=== PATIENT | male | born 1990 | race Caucasian/White ===

== ENCOUNTER 2022-10-30 12:58 | Emergency (ER) | payer OTHER, SELFPAY ==
[2022-10-30 13:04] VITALS: BP 142/85; PULSE 109; RESP 18; TEMP 37.6; O2SAT 95; BMI 29.8
--- NOTE | 2022-10-30 13:05 | CRLHL7_ITS ---
For Patients: As a result of the Century Cures Act, medical imaging exams and procedure reports are released immediately into your electronic medical record. You may view this report before your referring provider. If you have questions, please contact your health care provider. INDICATION: Trauma; elevated D-dimer; pain and swelling left lower extremity. Comparison: None. TECHNIQUE: Duplex ultrasound evaluation venous system left lower extremity; color Doppler duplex assessment. FINDINGS: No evidence of venous thrombosis involving the deep venous system. Deep venous system is compressible with augmentation of flow post compression. Contralateral right common femoral vein is unremarkable. A 5.6 x 1 x 4.4 cm complex fluid collection left medial lower calf at the site of injury; rule out hematoma. IMPRESSION: 1. No DVT left lower extremity. 2. A 5.6 x 1 x 4.4 cm complex fluid collection, avascular, at the site of injury in the left medial lower calf ; Rule out hematoma. Dictated by Zach Hancock MD @ 10/30/2022 3:17:08 PM (Electronically Signed)
--- NOTE | 2022-10-30 13:07 | CRLHL7_ITS ---
For Patients: As a result of the Cures Act, medical imaging exams and procedure reports are released immediately into your electronic medical record. You may view this report before your referring provider. If you have questions, please contact your health care provider. INDICATION: Tachycardia; left lower extremity injury; elevated D-dimer. TECHNIQUE: CT chest with intravenous contrast ; Coronal and sagittal reformats. FINDINGS: No evidence of acute or chronic pulmonary thromboembolism. No evidence of aortic aneurysm or dissection. Normal size cardiac silhouette without any pericardial effusion. No evidence of pleural effusion or chest wall pathology. No abnormal intra pulmonary nodular densities are identified. Limited CT through the upper abdomen is unremarkable. IMPRESSION: Negative CT chest with intravenous contrast. Please note that all CT scans at this facility use dose modulation, iterative reconstruction, and/or weight-based dosing when appropriate to reduce radiation dose to as low as reasonably achievable. Dictated by Zach Hancock MD @ 10/30/2022 3:54:49 PM (Electronically Signed)
--- NOTE | 2022-10-30 13:08 | ED.LOWEXIN ---
HPI - Extremity Injury (Lower) General Time Seen by Provider: 13:08 Date Seen: 10/30/22 Chief Complaint: Extremity Pain/Injury, Lower Stated Complaint: Possible blood clot Time Seen by Provider: 10/30/22 13:05 Source: patient and RN notes reviewed Mode of arrival: ambulatory Limitations: no limitations History of Present Illness HPI Narrative: This 31-year-old male was referred from urgent care to us in the ER for concern of possible thromboembolic disease. He presented to urgent care with increasing left lower extremity pain. About a week and half ago, he was kicked in the left lower leg by a cow. They were able to show me a picture in there was significant bruising. He states it really was not even that painful until yesterday when he got a mild kick in the same area. It started to become red and swollen, more painful. Last night he had chills but his thermometer did not read a fever. He reported that he was slightly short of breath in urgent care and was noted to have a history of atrial fibrillation. Had an EKG there are showing sinus tachycardia in the 120s, I am unable to see that EKG as of this time. He had a negative x-ray done of his left lower extremity, also had an elevated white blood count and D-dimer there. Kirsten the nurse practitioner did call us and I a absolutely supported her request for further workup here in the ER. We both agreed that he needed further evaluation for thromboembolic disease, otherwise based on my conversation with her, she was certainly concerned about cellulitis as well. O2 sats were 96% there. His did drive him here. He has no known history of MRSA, believes his tetanus to be up-to-date. Last took ibuprofen last night. Related Data Home Medications Medication Instructions Recorded Confirmed ibuprofen 200 mg capsule 200 mg PO Q6H PRN 11/01/22 11/01/22 Previous Rx's Medication Instructions Recorded cephalexin 500 mg tablet 500 mg PO TID #30 tabs 10/30/22 Allergies Allergy/AdvReac Type Severity Reaction Status Date / Time No Known Drug Allergies Allergy Unverified 11/01/22 09:29 Review of Systems Status of ROS: Reports: 6 or more systems reviewed and unremarkable except as noted in History and below PFSH PFSH Medical History Laceration of index finger ?S61.218A - Laceration without foreign body of other finger without damage to nail, initial encounter (ICD-10) Laceration of finger of right hand ?S61.219A - Laceration without foreign body of unspecified finger without damage to nail, initial encounter (ICD-10) History of cardioversion ?Z92.89 - Personal history of other medical treatment (ICD-10) Conjunctivitis (08/15/13) ?H10.9 - Unspecified conjunctivitis (ICD-10) Leg swelling ?M79.89 - Other specified soft tissue disorders (ICD-10) Surgical History History of hernia repair ?Z98.890 - Other specified postprocedural states (ICD-10) ?Z87.19 - Personal history of other diseases of the digestive system (ICD-10) History of foot surgery ?Z98.890 - Other specified postprocedural states (ICD-10) Family History (Updated 10/31/22 @ 13:05 by Juan Mohan) Mother Cardiac arrhythmia Brother Cardiac arrhythmia Social History Smoking Status: Never smoker How often do you have a drink containing alcohol: 2-4 times a month AUDIT-C Alcohol total score: 2 Non-prescribed substance use: denies use Exam Const: Vital Signs, click to edit/add: Vital Signs - 24 hr 10/30/22 13:04 10/30/22 13:54 10/30/22 14:00 Temperature 99.7 F H Pulse Rate 109 H 110 H Pulse Rate [Pulse Oximeter] 109 H Respiratory Rate 18 Blood Pressure Blood Pressure [Ri ght Upper Arm] 142/85 H Pulse Oximetry 95 97 97 Oxygen Delivery Me thod Room Air 10/30/22 14:01 Temperature Pulse Rate 109 H Pulse Rate [Pulse Oximeter] Respiratory Rate 16 Blood Pressure 123/88 Blood Pressure [Ri ght Upper Arm] Pulse Oximetry 97 Oxygen Delivery Me thod Room Air Pleasant 31-year-old gentleman whom appears to have some facial flushing but is otherwise alert and interactive. Able to speak in complete sentences. Conjugate gaze, sclera clear, pupils seem equal around. Symmetrical facial function. Lungs are clear with good air entry, no wheezing or crackles, no tachypnea. Heart rate is mildly fast, no murmur, normal S1 and S2. Abdomen is soft, nontender, no masses or organomegaly noted. His left lower extremity shows erythematous swollen area just above the ankle area medially. It seems tender there but is not fluctuant. There is more skin induration in the central erythematous area that is probably about 8-10 cm in diameter an irregular fashion over this medial lower extremity. From that there is faint pinkish change that is extending outward more so proximally up the medial calf. The calf itself is nontender when I palpate. He has got good dorsalis pedis and posterior tibialis pulses on this leg, normal cap refill of his toes and normal sensation. Documenting provider has reviewed patient's vital signs: yes Course Course ED Course: Infection, thromboembolic disease on need to be considered. Have discussed compartment syndrome with him although there is no vascular or neurologic symptoms of that at this point, did review with patient that we should still considered a possibility for development. Will try some IV Toradol, initiate IV fluids. CT of his chest PE protocol as well as a venous ultrasound of his left lower extremity have been ordered. We will get other labs outside of the CBC and D-dimer that he had done in urgent care. [place] [address], hemoglobin 15.7, platelet count 117766, absolute neutrophil count elevated at 12,700 thousand seven hundred. He is D-dimer was 667 with 105 100 being normal. This was all done in urgent care. The x-ray report of this extremity from Urgent Care showed marked superficial soft tissue swelling of the medial lower extremity without evidence of displaced fracture. Reevaluation(s) Time of Reevaluation #1: 14:39 Reevaluation #1: Reviewed with patient that this is looking like cellulitis. Preliminary report per the salesperson recreational vehicles is no blood clot. Did review that there looks to be a fluid collection underlying area that would be consistent with a hematoma. She did not believe this was not abscess as there was no increased vascularity around it. We still will need to rule out pulmonary emboli with chest CT PE protocol. In the meantime, have ordered 2 g IV Ancef. Discussed the need to try to rest and elevate this leg to help with resolution of infection. Time of Reevaluation #2: 16:10 Reevaluation #2: Reviewed final imaging reports. No pulmonary emboli, probable hematoma in the leg. We discussed elevating and resting this leg, there is likely overlying cellulitis but given there is underlying hematoma, am going to favor icing the hematoma area at this time. His asked about compression, I think light Ted wrap is fine but if he is elevating and resting, likely fine to just be open. We did specifically discuss compartment syndrome earlier, did review signs and symptoms of hematoma and should it become infected. He certainly needs to watch for worsening at this point. Do feel he is stable to try outpatient initiation of antibiotics but will get him scheduled to follow up with Orthopedics. Did review his last tetanus listed was 05/14/2010, does agree to have this updated. Consultations Consultation #1: Reviewed the case with Justin on-call for Orthopedics. She will help get him scheduled for follow-up, will have office contact him tomorrow. I did review with her that I was taking care of initiating antibiotic coverage for him. Time: 16:12 Vital Signs Vital signs: Initial Vital Signs Temperature 99.7 F H 10/30/22 13:04 Temperature Source Temporal Artery Scan 10/30/22 13:04 Pulse Rate 109 H 10/30/22 13:04 Respiratory Rate 18 10/30/22 13:04 Blood Pressure 142/85 H 10/30/22 13:04 Blood Pressure Mean 104 10/30/22 13:04 Blood Pressure Position Semi-Fowlers 10/30/22 13:04 Pulse Oximetry 95 10/30/22 13:04 Oxygen Delivery Method Room Air 10/30/22 13:04 Vital Signs Temperature 99.7 F H 10/30/22 13:04 Pulse Rate 109 H 10/30/22 13:04 Respiratory Rate 18 10/30/22 13:04 Blood Pressure 142/85 H 10/30/22 13:04 Pulse Oximetry 95 10/30/22 13:04 Oxygen Delivery Method Room Air 10/30/22 13:04 Temperature 99.7 F H 10/30/22 13:04 Pulse Rate 109 H 10/30/22 14:01 Respiratory Rate 16 10/30/22 14:01 Blood Pressure 123/88 10/30/22 14:01 Pulse Oximetry 97 10/30/22 14:01 Oxygen Delivery Method Room Air 10/30/22 14:01 MDM - Extremity Injury (Lower) Lab Data Attestation: I reviewed the patient's lab results. Labs: Lab Results 10/30/22 10/30/22 Range/Units 12:33 13:16 Sodium 136 (135-149) mmol/L Potassium 3.7 (3.6-5.1) mmol/L Chloride 101 (96-114) mmol/L Carbon Dioxide 27 (20-32) mmol/L Anion Gap 8 (7-15) mEq/L BUN 19 (5-24) mg/dL Creatinine 0.9 (0.5-1.5) mg/dL Estimated Creat Clear 129.33 Estimated GFR 116 ml/min Glucose 101 (60-115) mg/dL Lactate 0.9 (0.5-1.9) mmol/L Calcium 9.3 (8.4-10.6) mg/dL Total Creatine Kinase 163 (54-186) U/L C-Reactive Protein 5.3 H (0.5-1.0) mg/dL Procalcitonin 0.44 (<0.50) ng/mL Lab Acknowledgement Test Added Imaging Data Venous US: Attestation: I have reviewed the pertinent imaging results. Radiologist's impression: Patient: MIS KELLEY Facility:?[facility] Patient ID:?[id number] Site Patient ID:?[id number]. Site :?1990 Study:?US Extremity Left LEV LT-10/30/2022 2:18:02 PM Ordering Physician:Liliana Georges Final Report: INDICATION: Trauma; elevated D-dimer; pain and swelling left lower extremity. Comparison: None. TECHNIQUE: Duplex ultrasound evaluation venous system left lower extremity; color Doppler duplex assessment. FINDINGS: No evidence of venous thrombosis involving the deep venous system. Deep venous system is compressible with augmentation of flow post compression. Contralateral right common femoral vein is unremarkable. A 5.6 x 1 x 4.4 cm complex fluid collection left medial lower calf at the site of injury; rule out hematoma. IMPRESSION: 1. No DVT left lower extremity. 2. A 5.6 x 1 x 4.4 cm complex fluid collection, avascular, at the site of injury in the left medial lower calf ; Rule out hematoma. Dictated by Zach Hancock MD @ 10/30/2022 3:17:08 PM (Electronic Signature) CT scan - chest: Attestation: I have reviewed the pertinent imaging results. Radiologist's impression: Patient: MIS KELLEY Facility:?[facility] Patient ID:?[id number] Site Patient ID:?[id number]. Site :?1990 Study:?CT Chest Angio PE W/ISOVUE 370 95CC-10/30/2022 2:56:19 PM Ordering Physician:Liliana Georges Final Report: INDICATION: Tachycardia; left lower extremity injury; elevated D-dimer. TECHNIQUE: CT chest with intravenous contrast ; Coronal and sagittal reformats. FINDINGS: No evidence of acute or chronic pulmonary thromboembolism. No evidence of aortic aneurysm or dissection. Normal size cardiac silhouette without any pericardial effusion. No evidence of pleural effusion or chest wall pathology. No abnormal intra pulmonary nodular densities are identified. Limited CT through the upper abdomen is unremarkable. IMPRESSION: Negative CT chest with intravenous contrast. Please note that all CT scans at this facility use dose modulation, iterative reconstruction, and/or weight-based dosing when appropriate to reduce radiation dose to as low as reasonably achievable. Dictated by Zach Hancock MD @ 10/30/2022 3:54:49 PM (Electronic Signature) ECG Data Attestation: I personally reviewed and interpreted this ECG as follows: (Sinus tachycardia, 109 beats per minute. No acute ischemic change noted, QT corrected 414 milliseconds.) ECG interpretation date: 10/30/22 ECG interpretation time: 13:21 Prior ECG tracings: not available for review (EKG is not scanned into the system from urgent care at this time.) Critical Care Time Critical Care Time Critical Care Time: No Discharge Plan Discharge Clinical Impression: Cellulitis of left lower leg, Hematoma Patient Disposition: Home, Self-Care Condition: Stable Instructions: Cellulitis (ED), Hematoma (ED) Additional Instructions: Next dose of antibiotics do tonight later before bed. Take antibiotics as prescribed. Do recommend elevating and icing this left lower extremity due to the underlying hematoma. Can use a light Ted wrap for compression. I highly encourage you to try to stay off this leg and rest it at least for the next few days, further recommendations can be obtained from Orthopedics when he follow-up. If you do not hear from the Orthopedic Clinic tomorrow, please call them to get scheduled for follow-up. Number to the Ortho Clinic is [phone]. It is fine to use Tylenol and ibuprofen as needed for discomfort, follow bottle directions for dosing. If your pain is significantly increasing, area of redness is rapidly expanding, have worsening fever pattern, do recommend re-evaluation in the interim. Prescriptions: New cephalexin 500 mg tablet 500 mg PO TID Qty: 30 0RF No Action ibuprofen 200 mg capsule 200 mg PO Q6H PRN Follow Up/Referrals: Epifanio Crenshaw MD [Referring] - Stand Alone Forms: evocatal Info Instructions
[2022-10-30 13:41] LABS: Lactate* 0.9 mmol/L (0.5-1.9)
[2022-10-30] MEDS: KETOROLAC 15 MG/ML inj IVP (13:42)
[2022-10-30 13:54] VITALS: PULSE 109; O2SAT 97
[2022-10-30 13:57] LABS: Chloride* 101 mmol/L (96-114); Potassium* 3.7 mmol/L (3.6-5.1); Sodium* 136 mmol/L (135-149)
[2022-10-30 14:00] VITALS: PULSE 110; O2SAT 97
[2022-10-30 14:00] LABS: Anion Gap 8 mEq/L (7-15); Blood Urea Nitrogen* 19 mg/dL (5-24); Carbon Dioxide* 27 mmol/L (20-32); Creatine Kinase* 163 U/L (54-186); Creatinine* 0.9 mg/dL (0.5-1.5); Est. Creatinine Clearance* 129.33; Estimated Glomerular Filt Rate 116 ml/min
[2022-10-30 14:01] VITALS: BP 123/88; PULSE 109; RESP 16; O2SAT 97
[2022-10-30 14:01] LABS: Calcium* 9.3 mg/dL (8.4-10.6); Glucose* 101 mg/dL (60-115)
[2022-10-30 14:03] LABS: C Reactive Protein* 5.3 mg/dL (0.5-1.0)
[2022-10-30 14:17] LABS: Procalcitonin* 0.44 ng/mL (<0.50)
[2022-10-30] MEDS: CEFAZOLIN 2 GM in 0.9 % SODIUM CHLORIDE Mini-bag 100 ML IVPB (15:16)
[2022-10-30] MEDS: cephALEXin 500 MG CAPSULE PO (16:20)
[2022-10-30] MEDS: TETANUS/DIPHTH/PERTUSSIS 0.5 ML SYRINGE IM (16:50)
== END 2022-10-30 16:57 | disposition home or self-care (01) ==
PROVIDERS: Emergency Provider Family Medicine
DX: L03.116 Cellulitis of left lower limb (principal); S80.12XA Contusion of left lower leg, initial encounter
CPT/HCPCS: 36415; 71275; 80048; 82550; 83605; 84145; 86140; 87040; 90715; 93005; 93971; 94761; 96365; 96372; 96375; 99284; 99285; A9270; J0690; J1885; Q9967

== ENCOUNTER 2022-11-01 10:50 | Outpatient (CLI) | payer OTHER, SELFPAY | END 2022-11-01 10:51 | disposition home or self-care (01) | PROVIDERS: Visit Provider Physician Assistant Surgical | DX: L03.116 Cellulitis of left lower limb (principal); R79.89 Other specified abnormal findings of blood chemistry; L02.416 Cutaneous abscess of left lower limb; T14.8XXA Other injury of unspecified body region, initial encounter | CPT/HCPCS: 87070; 87075; 87186; 87205; 89051 ==

== ENCOUNTER 2022-11-04 10:27 | Day surgery (SDC) | payer OTHER, SELFPAY ==
[2022-11-04] VITALS (11 sets, daily range): BP systolic 122–137; BP diastolic 87–101; PULSE 81–113; RESP 16–23; TEMP 36.4–37.2; O2SAT 93–100; BMI 29.7
[2022-11-04] MEDS: LACTATED RINGERS 1000 ML 1,000 ML 100 ML IV (10:35)
[2022-11-04] MEDS: SODIUM CHLORIDE 0.9 % (FLUSH) 10 ML SYRINGE IVF (11:04)
--- NOTE | 2022-11-04 11:24 | W.ANESCHARGE ---
Anesthesia Charges Start Date/Time Anesthesia Start Date: 11/04/22 Anesthesia Start Time: 11:58 Stop Date/Time Anesthesia Stop Date: 11/04/22 Anesthesia Stop Time: 13:10
[2022-11-04] MEDS: CEFAZOLIN 2 GM in 0.9 % SODIUM CHLORIDE Mini-bag 100 ML IVPB (12:24)
[2022-11-04] MEDS: LIDOCAINE 1 % PF 30 ML INJECTION (12:35)
[2022-11-04] MEDS: BUPIVACAINE 0.5% 30 ML INJECTION (12:35)
--- NOTE | 2022-11-04 12:38 | SUR.OPER ---
DEBRIEF COMPLETED WITH SURGEON BEFORE HE LEFT THE OR. PROCEDURE, EBL, AND SPECIMENS CONFIRMED.
[2022-11-04] MEDS: BACITRACIN OINTMENT BULK TUBE 1 APPLIC TOPICAL (12:55)
[2022-11-04] MEDS: MEPERIDINE 25 MG/ML INJ 12.5 MG IVP (13:23)
--- NOTE | 2022-11-04 13:26 | W.ANESCHARGE ---
Anesthesia Charges Start Date/Time Anesthesia Start Date: 11/04/22 Anesthesia Start Time: 11:58 Stop Date/Time Anesthesia Stop Date: 11/04/22 Anesthesia Stop Time: 13:10
--- NOTE | 2022-11-04 13:29 | W.PM.H&PU ---
History & Physical Update History & Physical Update H&P Reviewed and patient assessed: No changes noted
--- NOTE | 2022-11-04 13:29 | PM.ORPRC ---
Procedure Note Date of procedure: 11/04/22 Procedure: PREOPERATIVE DIAGNOSIS: 1. Left anterior medial mid leg deep abscess POSTOPERATIVE DIAGNOSIS: 1. Left anterior medial mid leg deep abscess PROCEDURE: 1. Left anterior medial mid leg incision and drainage deep abscess/hematoma (skin incision 5 cm; deep tracking measured approximately 6 x 7 cm in the proximal-distal, medial-lateral directions, respectively). 2. Left leg excisional debridement subcutaneous tissue SURGEON: Cody Ellison MD. AERONAUTICAL TEST ENGINEER: Tom Garvey Pac - Of note, an emergency medicine physician assistant was critical for this case to aid in patient positioning, tissue retraction, limb manipulation/positioning, patient safety, & closure. ANESTHESIA: General LMA EBL: 25 mL IMPLANTS: None TOURNIQUET: 20 minutes at 250 torr COMPLICATIONS: None evident INDICATIONS: The patient is a pleasant 31-year-old male who has experienced left anterior medial leg pain, swelling, and redness development over the last few days. This all began from a cow kicking this portion of his leg 2 weeks ago. Obviously he had pain initially, but it resolved until the swelling, redness, and pain returned in the last few days. Aspiration was performed in clinic yesterday which had concern for a deep abscess. Oral antibiotics have been insufficient today. Thus, surgery is indicated to incise and drain deep abscess. DESCRIPTION OF PROCEDURE: Following a thorough discussion of risks, benefits, and alternatives consent was obtained and the operative extremity was marked. The patient was brought to the operating room and placed supine on the operating table. 2 g IV Ancef were administered only after cultures were obtained during the procedure today. The patient had previously been on oral antibiotics and thus cultures may be falsely negative. Proper time-out was performed identifying proper patient, site, and procedure. The operative extremity was prepped and draped in the appropriate sterile fashion using ChloraPrep. The limb was exsanguinated and the tourniquet inflated. A longitudinal incision was made overlying anterior medial aspect of the left mid leg. Upon incising the skin, immediate egress of purulent fluid was encountered. Culture was obtained of this fluid. Again he has been on oral antibiotics leading up to today's surgery (Keflex). The wound was opened and drained of the purulent material. Thorough irrigation normal saline performed now and as well as multiple times throughout the procedure. Curette was utilized for sharp excisional debridement of subcutaneous tissue along anteromedial aspect of the mid leg. Unhealthy/necrotic tissue was excised and again thorough irrigation performed in various stages throughout the procedure. The tourniquet was released and hemostasis achieved. Closure performed with 3-0 nylon interrupted vertical mattress fashion. Local anesthetic with 0.5% Marcaine plain and 1% lidocaine plain was administered. Soft dressings were applied, and the patient was awoken/transferred to the recovery room in stable condition. PLAN: 1. Encourage elevation of the operative extremity. 2. Range of motion of the operative extremity/digits as tolerated. 3. Ibuprofen, acetaminophen and/or oxycodone as needed for pain. 4. Follow up with PA visit in 12-16 days for wound check and suture removal.
== END 2022-11-04 14:29 | disposition home or self-care (01) ==
LOC: OR 10:28
PROVIDERS: Visit Provider Orthopaedic Surgery Sports Medicine
PROC: (CPT 11042; principal; 2022-11-04 12:00)
DX: L02.416 Cutaneous abscess of left lower limb (principal); S80.12XA Contusion of left lower leg, initial encounter
CPT/HCPCS: 11042; 10140; 1470; 87070; 87075; 87186; 87205; A4467; J0665; J0690; J1100; J1170; J2001; J2175; J2250; J2405; J2704; J3010; J3490; J7120